=== PATIENT | male | born 1965 | race Caucasian/White ===

== ENCOUNTER 2016-04-03 23:30 | Emergency (ER) | payer SELFPAY ==
[2016-04-03] MEDS ORDERED: Adenosine 6 MG/2 ML VIAL ONE ×2 (23:37→23:40)
[2016-04-03] MEDS ORDERED: Nitroglycerin 2% Ointment 1 INCH/1 GM Packet ONE (23:43)
[2016-04-03] MEDS ORDERED: Ondansetron HCl/PF 4 MG/2 ML Vial ONE (23:49)
[2016-04-04 00:10] LABS: ALT (SGPT) 21 U/L (0-55); AST (SGOT) 32 U/L (5-34); Alkaline Phosphatase 90 U/L (40-150); Anion Gap 18 mmol/L (10-20); BUN (Urea Nitrogen) 13 mg/dL (8.4-25.7); Bilirubin, Total 0.4 mg/dL (0.2-1.2); Calc. Creatinine Clearance 0 mL/min (70-130); Calcium 9.6 mg/dL (7.8-10.44); Carbon Dioxide 19 mmol/L (22-29); Chloride 106 mmol/L (98-107); Estimated GFR-MDRD 84; Globulin 3.5 g/dL (2.4-3.5); Protein, Total 7.8 g/dL (6.0-8.3)
[2016-04-04 00:11] LABS: Troponin I 0.016 ng/mL (< 0.028)
[2016-04-04 00:23] LABS: #Basophils 0.2 thou/uL (0.0-0.2); #Eosinphils 0.3 thou/uL (0.0-0.7); #Lymphocytes 3.7 thou/uL (1.20-3.40); #Monocytes 0.9 thou/uL (0.11-0.59); #Neutrophils 13.1 thou/uL (1.40-6.50); %Basophils 1.3 % (0.0-1.0); %Eosinophils 1.4 % (0.0-10.0); Hematocrit 53.6 % (42.0-52.0); Mean Platelet Volume 7.3 fL (7.4-10.4); White Blood Cell (WBC) Count 18.2 thou/uL (4.8-10.8)
--- NOTE | 2016-04-04 10:02 | RAD ---
PORTABLE CHEST: Date: 04/03/16 No prior films were available for comparison. FINDINGS: An AP portable film at 2351 hours is presented. The heart is normal in size and there is no vascular congestion. There are no pleural effusions. There are some streaky linear infiltrates, particularly in the right lower chest, that could be either atelectasis or a developing pneumonia. The upper lob es are clear. The mediastinum is unremarkable in appearance. IMPRESSION: Some increased density in the lung bases, particularly the right lower lobe. Minimal atelectasis brent heath early infiltrate. POS: HOME
== END 2016-04-04 00:34 | disposition short-term general hospital (02) ==
LOC: BURERS 23:30
DX: I47.1 Supraventricular tachycardia (principal); F17.210 Nicotine dependence, cigarettes, uncomplicated
CPT/HCPCS: 71010; 80053; 82553; 84484; 85025; 85379; 93005; 96361; 96374; 96375; J0153; J2270; J2405

== ENCOUNTER 2016-05-30 11:16 | Emergency (ER) | payer OTHER, SELFPAY ==
[2016-05-30] MEDS ORDERED: Fentanyl 100 MCG/2 ML VIAL ONE (11:39)
[2016-05-30] MEDS ORDERED: Ondansetron HCl/PF 4 MG/2 ML Vial ONE (11:39)
[2016-05-30] MEDS ORDERED: Lisinopril 5 MG TAB ONE (11:57)
[2016-05-30 12:12] LABS: Band 1 % (5-11); Eosinophils 6 % (0-10); Hemoglobin 17.2 g/dL (14.0-18.0); Lymphocytes 30 % (21-51); MDiff Complete? YES; Mean Corpuscular HGB CONC 37.4 g/dL (32.0-36.0); Mean Corpuscular Hemoglobin 37.2 pg (27.0-31.0); Mean Corpuscular Volume 99.5 fl (80.0-94.0); Mean Platelet Volume 8.2 fL (7.4-10.4); Monocytes 7 % (0-10); Neutrophil 56 % (42-75); Platelet Count 145 thou/uL (130-400); RBC Distribution Width 11.7 % (11.5-14.5); Red Blood Cell (RBC) Count 4.63 mill/uL (4.70-6.10); White Blood Cell (WBC) Count 8.8 thou/uL (4.8-10.8)
[2016-05-30] MEDS ORDERED: Prochlorperazine 10 MG/2 ML VIAL ONE (12:39)
[2016-05-30] MEDS ORDERED: diphenhydrAMINE HCl 50 MG/ML 1 ML VIAL ONE (12:39)
[2016-05-30 12:46] LABS: ALT (SGPT) 21 U/L (0-55); AST (SGOT) 24 U/L (5-34); Alkaline Phosphatase 82 U/L (40-150); Anion Gap 13 mmol/L (10-20); BUN (Urea Nitrogen) 11 mg/dL (8.4-25.7); Bilirubin, Total 0.4 mg/dL (0.2-1.2); Calc. Creatinine Clearance 0 mL/min (70-130); Calcium 8.9 mg/dL (7.8-10.44); Carbon Dioxide 22 mmol/L (22-29); Chloride 110 mmol/L (98-107); Estimated GFR-MDRD Greater than 90; Glucose 97 mg/dL (70-105); Potassium 4.2 mmol/L (3.5-5.1); Sodium 141 mmol/L (136-145)
--- NOTE | 2016-05-30 14:59 | CT ---
PRELIMINARY REPORT/[facility]/EMERGENCY AFTER HOURS PROCEDURE: EXAM: CT Head Without Intravenous Contrast CLINICAL HISTORY: The patient is a 51 years male; Pain; Headache; Migraine; With aura; Does not respond to medication; With migrainosus (>72 hrs \T\ severe); Patient HX: Patient reports four weeks ago he underwent a he art ablation, patient reports one week after the surgery he began having a headache to the right hedy e of his head, patient reports he has attempted to treat pain with motrin and tylenol and nothing is relieving his headache, pt reports recently he has been trying nasal wash to relieve headache with no relief noted. TECHNIQUE: Axial computed tomography images of the head/brain without intravenous contrast. COMPARISON: No relevant prior studies available. FINDINGS: Brain: No intracranial hemorrhage. Normal juarez-white differentiation with no evidence of edema, terr itorial infarct, abnormal mass effect or midline shift. No extra-axial fluid collection. Ventricles: Unremarkable. No ventriculomegaly. Bones/joints: Unremarkable. No acute fracture. Soft tissues: Unremarkable. Sinuses: Unremarkable as visualized. No acute sinusitis. Mastoid air cells: Unremarkable as visualized. No mastoid effusion. IMPRESSION: No acute findings. Thank you for allowing us to participate in the care of your patient. Dictated and Authenticated by: Oni Jara MD 05/30/2016 12:27 PM Central Time ([place] \T\ [place]) FINAL REPORT CT OF THE BRAIN WITHOUT CONTRAST 05/30/2016 A non-contrast CT was performed. The ventricles are normal in size with no shift. No intracranial bleeding or extraaxial hematoma was seen. There is no subarachnoid blood evident. No mass, edema, or sign of stroke was found. The calvarium appears normal. The visible paranasal sinuses are clear , as are the mastoid air cells on the right. A few near the mastoid tip on the left were semi-opaqu e. IMPRESSION: No acute intracranial findings. POS: HOME
== END 2016-05-30 13:38 | disposition home or self-care (01) ==
LOC: BURERS 11:16
DX: I10 Essential (primary) hypertension (principal); F17.210 Nicotine dependence, cigarettes, uncomplicated; Z79.82 Long term (current) use of aspirin
CPT/HCPCS: 70450; 80053; 85025; 85652; 94760; 96365; 96375; J0780; J1200; J2405; J3010

== ENCOUNTER 2016-12-29 17:05 | Emergency (ER) | payer SELFPAY ==
[2016-12-29] MEDS ORDERED: Nitroglycerin 2% Ointment 1 INCH/1 GM Packet ONE (17:18)
[2016-12-29 17:23] LABS: #Basophils 0.1 thou/uL (0.0-0.2); #Eosinphils 0.2 thou/uL (0.0-0.7); #Lymphocytes 4.9 thou/uL (1.20-3.40); #Monocytes 0.7 thou/uL (0.11-0.59); #Neutrophils 6.9 thou/uL (1.40-6.50); %Basophils 1.1 % (0.0-1.0); %Eosinophils 1.8 % (0.0-10.0); %Lymphocytes 38.1 % (21.0-51.0); %Monocytes 5.2 % (0.0-10.0); %Neutrophils 53.8 % (42.0-75.0); Hemoglobin 17.2 g/dL (14.0-18.0); MDiff Complete? YES; Macrocytosis SLIGHT = 6-15 cells (100X) (0-5/hpf); Mean Corpuscular HGB CONC 34.6 g/dL (32.0-36.0); Mean Platelet Volume 7.1 fL (7.4-10.4); Platelet Count 188 thou/uL (130-400); RBC Distribution Width 10.8 % (11.5-14.5); Red Blood Cell (RBC) Count 4.92 mill/uL (4.70-6.10); White Blood Cell (WBC) Count 12.9 thou/uL (4.8-10.8)
[2016-12-29 17:40] LABS: ALT (SGPT) 22 U/L (8-55); AST (SGOT) 20 U/L (5-34); Albumin 4.1 g/dL (3.5-5.0); Alkaline Phosphatase 71 U/L (40-150); Anion Gap 15 mmol/L (10-20); BUN (Urea Nitrogen) 14 mg/dL (8.4-25.7); Bilirubin, Total 0.5 mg/dL (0.2-1.2); Calc. Creatinine Clearance 0 mL/min (70-130); Calcium 9.6 mg/dL (7.8-10.44); Carbon Dioxide 23 mmol/L (22-29); Chloride 106 mmol/L (98-107); Estimated GFR-MDRD Greater than 90; Globulin 3.3 g/dL (2.4-3.5); Glucose 85 mg/dL (70-105); Lipase 62 U/L (8-78); Potassium 3.9 mmol/L (3.5-5.1); Protein, Total 7.4 g/dL (6.0-8.3); Sodium 140 mmol/L (136-145)
[2016-12-29 17:41] LABS: CKMB 1.1 ng/mL (0-6.6); Troponin I Less than 0.010 ng/mL (< 0.028)
--- NOTE | 2016-12-29 21:01 | RAD ---
PORTABLE CHEST: 12/29/16 Comparison is made with a 04/03/16 study. The heart is normal in size. There is no vascular congestion or edema. No pleural effusions were seen . Some minor increase in basilar lung markings is no different than before. The mediastinum appears n ormal. Faint calcification is suggested in the aortic arch. IMPRESSION: No acute thoracic finding. POS: HOME
== END 2016-12-29 20:09 | disposition short-term general hospital (02) ==
LOC: BURERS 17:05
DX: R07.2 Precordial pain (principal); I10 Essential (primary) hypertension; I48.92 Unspecified atrial flutter; F41.9 Anxiety disorder, unspecified; F32.9 Major depressive disorder, single episode, unspecified; F17.210 Nicotine dependence, cigarettes, uncomplicated; Z79.82 Long term (current) use of aspirin; Z79.899 Other long term (current) drug therapy
CPT/HCPCS: 71010; 80053; 82553; 83690; 84484; 85025; 93005; 94760

== ENCOUNTER 2017-04-07 08:44 | Emergency (ER) | payer SELFPAY ==
[2017-04-07] MEDS ORDERED: Ondansetron HCl/PF 4 MG/2 ML Vial ONE (09:05)
[2017-04-07] MEDS ORDERED: Morphine 4 MG/ML Carpuject ONE (09:05)
[2017-04-07] MEDS ORDERED: Pantoprazole 40 MG VIAL ONE (09:05)
[2017-04-07 09:17] LABS: ALT (SGPT) 20 U/L (8-55); AST (SGOT) 26 U/L (5-34); Albumin 4.2 g/dL (3.5-5.0); Alkaline Phosphatase 89 U/L (40-150); Anion Gap 13 mmol/L (10-20); BUN (Urea Nitrogen) 13 mg/dL (8.4-25.7); Bilirubin, Total 0.7 mg/dL (0.2-1.2); Calc. Creatinine Clearance 0 mL/min (70-130); Calcium 9.6 mg/dL (7.8-10.44); Carbon Dioxide 24 mmol/L (22-29); Chloride 107 mmol/L (98-107); Estimated GFR-MDRD Greater than 90; Globulin 3.1 g/dL (2.4-3.5); Glucose 94 mg/dL (70-105); Potassium 4.3 mmol/L (3.5-5.1); Protein, Total 7.3 g/dL (6.0-8.3); Sodium 140 mmol/L (136-145)
[2017-04-07 09:19] LABS: #Basophils 0.1 thou/uL (0.0-0.2); #Eosinphils 0.3 thou/uL (0.0-0.7); #Lymphocytes 3.5 thou/uL (1.20-3.40); #Monocytes 0.7 thou/uL (0.11-0.59); #Neutrophils 4.6 thou/uL (1.40-6.50); %Basophils 1.2 % (0.0-1.0); %Eosinophils 3.1 % (0.0-10.0); %Lymphocytes 37.9 % (21.0-51.0); %Monocytes 7.4 % (0.0-10.0); %Neutrophils 50.5 % (42.0-75.0); Hemoglobin 17.4 g/dL (14.0-18.0); Mean Corpuscular Hemoglobin 35.2 pg (27.0-31.0); Mean Corpuscular Volume 97.7 fl (80.0-94.0); Mean Platelet Volume 7.4 fL (7.4-10.4); Platelet Count 166 thou/uL (130-400); RBC Distribution Width 11.2 % (11.5-14.5); Red Blood Cell (RBC) Count 4.95 mill/uL (4.70-6.10); White Blood Cell (WBC) Count 9.1 thou/uL (4.8-10.8)
[2017-04-07 09:21] LABS: CKMB 1.6 ng/mL (0-6.6); Troponin I Less than 0.010 ng/mL (< 0.028)
[2017-04-07 09:27] LABS: PLT Morphology Comment Appears Adequate; RBC Morphology Normal
--- NOTE | 2017-04-07 17:48 | RAD ---
PORTABLE CHEST 04/07/17 An AP portable film at 0850 is compared with an 12/29/16 study. The heart is normal in size and the lungs are clear. No infiltrate or effusion was seen. There is no pulmonary edema or vascular congestion. The mediastinum appears normal. IMPRESSION: No acute thoracic finding. POS: HOME
== END 2017-04-07 11:02 | disposition short-term general hospital (02) ==
LOC: BURERS 08:44
DX: R07.2 Precordial pain (principal); I10 Essential (primary) hypertension; I48.92 Unspecified atrial flutter; F17.210 Nicotine dependence, cigarettes, uncomplicated
CPT/HCPCS: 71045; 80053; 82553; 84484; 85025; 93005; 96374; 96375; C9113; J2270; J2405

== ENCOUNTER 2017-11-01 10:20 | Outpatient (CLI) | payer OTHER, SELFPAY ==
--- NOTE | 2017-11-01 21:36 | RAD ---
LEFT WRIST: 11/01/17 Only AP and oblique views were provided. There is no lateral view given. No fracture, dislocation, or carpal abnormality was seen. The metacarpals appeared intact. IMPRESSION: No acute findings. POS: HOME
== END 2017-11-01 10:21 | disposition home or self-care (01) ==
LOC: BURRAD 10:20
PROVIDERS: ATTEND Family Medicine
DX: M25.532 Pain in left wrist (principal)

== ENCOUNTER 2017-12-19 09:40 | Emergency (ER) | payer SELFPAY ==
[2017-12-19] MEDS ORDERED: predniSONE 20 MG TAB ONE (09:59)
[2017-12-19] MEDS ORDERED: Ketorolac Tromethamine 30 MG/ML VIAL ONE (09:59)
== END 2017-12-19 10:15 | disposition home or self-care (01) ==
LOC: BURERS 09:40
DX: M54.42 Lumbago with sciatica, left side (principal); I10 Essential (primary) hypertension; I49.9 Cardiac arrhythmia, unspecified; I47.1 Supraventricular tachycardia; F17.210 Nicotine dependence, cigarettes, uncomplicated; F41.9 Anxiety disorder, unspecified; F32.9 Major depressive disorder, single episode, unspecified; Z79.82 Long term (current) use of aspirin; Z79.891 Long term (current) use of opiate analgesic; Z79.899 Other long term (current) drug therapy
CPT/HCPCS: 96372; J1885; J7506

== ENCOUNTER 2017-12-23 18:03 | Emergency (ER) | payer SELFPAY | END 2017-12-23 18:26 | disposition home or self-care (01) | LOC: BURERS 18:03 | DX: B02.9 Zoster without complications (principal); I10 Essential (primary) hypertension; I49.9 Cardiac arrhythmia, unspecified; F32.9 Major depressive disorder, single episode, unspecified; F41.9 Anxiety disorder, unspecified; Z87.891 Personal history of nicotine dependence; Z79.82 Long term (current) use of aspirin; Z79.891 Long term (current) use of opiate analgesic; Z79.899 Other long term (current) drug therapy | CPT/HCPCS: 99282 ==

== ENCOUNTER 2018-07-08 22:36 | Emergency (ER) | payer OTHER, SELFPAY ==
[~2018-07-08 22:36] MED LIST: Iopamidol 370 76% 100 ML VIAL ONE
[2018-07-08] MEDS ORDERED: Ketorolac Tromethamine 30 MG/ML VIAL ONE (22:52)
[2018-07-08 23:09] LABS: #Basophils 0.2 thou/uL (0.0-0.2); #Eosinphils 0.2 thou/uL (0.0-0.7); #Lymphocytes 3.6 thou/uL (1.20-3.40); #Monocytes 0.9 thou/uL (0.11-0.59); #Neutrophils 13.6 thou/uL (1.40-6.50); %Eosinophils 1.1 % (0.0-10.0); %Lymphocytes 19.3 % (21.0-51.0); %Monocytes 4.8 % (0.0-10.0); %Neutrophils 73.9 % (42.0-75.0); Mean Corpuscular HGB CONC 34.8 g/dL (32.0-36.0); Mean Corpuscular Hemoglobin 33.7 pg (27.0-31.0); Mean Corpuscular Volume 96.8 fL (78.0-98.0); Mean Platelet Volume 7.3 fL (7.4-10.4); Platelet Count 176 thou/uL (130-400); RBC Distribution Width 11.3 % (11.5-14.5); Red Blood Cell (RBC) Count 5.05 mill/uL (4.70-6.10); White Blood Cell (WBC) Count 18.4 thou/uL (4.8-10.8)
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
[2018-07-08 23:21] LABS: ALT (SGPT) 21 U/L (8-55); AST (SGOT) 34 U/L (5-34); Albumin 4.4 g/dL (3.5-5.0); Alkaline Phosphatase 80 U/L (40-150); Anion Gap 18 mmol/L (10-20); BUN (Urea Nitrogen) 14 mg/dL (8.4-25.7); Bilirubin, Total 0.4 mg/dL (0.2-1.2); Calc. Creatinine Clearance 0 mL/min (70-130); Calcium 9.9 mg/dL (7.8-10.44); Carbon Dioxide 20 mmol/L (22-29); Chloride 105 mmol/L (98-107); Estimated GFR-MDRD 82; Globulin 3.4 g/dL (2.4-3.5); Glucose 109 mg/dL (70-105); Potassium 3.9 mmol/L (3.5-5.1); Protein, Total 7.8 g/dL (6.0-8.3); Sodium 139 mmol/L (136-145)
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
--- NOTE | 2018-07-08 23:27 | CT ---
EXAM: CT of the cervical spine without contrast HISTORY: Neck pain COMPARISON: None TECHNIQUE: Multiple contiguous axial images were obtained in a CT of the cervical spine without contr ast. Sagittal and coronal reformats were performed. FINDINGS: The vertebral bodies demonstrate normal height and alignment without fracture or subluxati on. No prevertebral soft tissue swelling is seen. Moderate degenerative changes are seen in the mid cervical spine with intervertebral disc space narrowing and osteophyte formation. The posterior facets are well aligned. Normal alignment of the skull base with the cervical spine is seen. The lung apices and cervical soft tissues are unremarkable. IMPRESSION: No evidence of acute osseous abnormality of the cervical spine.
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
== END 2018-07-09 00:20 | disposition home or self-care (01) ==
LOC: BURERS 22:36
DX: S00.83XA Contusion of other part of head, initial encounter (principal); S20.212A Contusion of left front wall of thorax, initial encounter; S40.011A Contusion of right shoulder, initial encounter; I47.1 Supraventricular tachycardia; I10 Essential (primary) hypertension; I49.9 Cardiac arrhythmia, unspecified; F41.9 Anxiety disorder, unspecified; F32.9 Major depressive disorder, single episode, unspecified; Z87.891 Personal history of nicotine dependence; Z79.82 Long term (current) use of aspirin; Z79.891 Long term (current) use of opiate analgesic; Z79.899 Other long term (current) drug therapy; V89.2XXA Person injured in unspecified motor-vehicle accident, traffic, initial encounter
CPT/HCPCS: 70450; 70486; 71260; 72125; 74177; 80053; 84484; 85025; 85610; 85730; 93005; 94760; 96374; G0390; J1885; Q9967

== ENCOUNTER 2022-06-01 11:32 | Emergency (ER) | payer SELFPAY ==
[2022-06-01] MEDS ORDERED: Clindamycin 150 MG CAP ONE (11:58)
[2022-06-01] MEDS ORDERED: Ibuprofen 800 MG TAB ONE (11:58)
== END 2022-06-01 12:03 | disposition home or self-care (01) ==
LOC: BURERS 11:32
DX: L73.2 Hidradenitis suppurativa (principal); I10 Essential (primary) hypertension; Z87.891 Personal history of nicotine dependence
CPT/HCPCS: 99283

== ENCOUNTER 2022-06-11 12:04 | Emergency (ER) | payer SELFPAY ==
[2022-06-11] MEDS ORDERED: Ondansetron PF 4 MG/2 ML Vial ONE (12:28)
[2022-06-11] MEDS ORDERED: Ketorolac Tromethamine 30 MG/ML VIAL ONE (12:28)
[2022-06-11 12:34] LABS: #Basophils 0.1 thou/uL (0.0-0.2); #Eosinphils 0.3 thou/uL (0.0-0.7); #Lymphocytes 3.1 thou/uL (1.20-3.40); #Monocytes 0.7 thou/uL (0.11-0.59); #Neutrophils 5.1 thou/uL (1.40-6.50); %Basophils 1.5 % (0.0-1.0); %Eosinophils 3.3 % (0.0-10.0); %Lymphocytes 33.4 % (21.0-51.0); %Monocytes 7.1 % (0.0-10.0); %Neutrophils 54.8 % (42.0-75.0); Hemoglobin 18.2 g/dL (14.0-18.0); Mean Corpuscular HGB CONC 35.5 g/dL (32.0-36.0); Mean Corpuscular Hemoglobin 35.6 pg (27.0-31.0); Platelet Count 178 10x3/uL (130-400); RBC Distribution Width 11.2 % (11.5-14.5); Red Blood Cell (RBC) Count 5.12 mill/uL (4.70-6.10); White Blood Cell (WBC) Count 9.4 10x3/uL (4.8-10.8)
[2022-06-11 12:36] LABS: MDiff Complete? YES
[2022-06-11 12:54] LABS: ALT (SGPT) 17 U/L (8-55); AST (SGOT) 22 U/L (5-34); Albumin 4.2 g/dL (3.5-5.0); Alcohol Less than 10 mg/dL (Less than 10); Alkaline Phosphatase 70 U/L (40-110); Anion Gap 12 mmol/L (10-20); BUN (Urea Nitrogen) 11 mg/dL (8.4-25.7); Bilirubin, Total 0.5 mg/dL (0.2-1.2); Calc. Creatinine Clearance 0 mL/min (70-130); Calcium 9.1 mg/dL (7.8-10.44); Carbon Dioxide 21 mmol/L (22-29); Chloride 109 mmol/L (98-107); Estimated GFR 98; Globulin 3.2 g/dL (2.4-3.5); Glucose 99 mg/dL (70-105); Lipase 199 U/L (8-78); Magnesium 1.8 mg/dL (1.6-2.6); Potassium 4.1 mmol/L (3.5-5.1); Protein, Total 7.4 g/dL (6.0-8.3); Sodium 138 mmol/L (136-145)
[2022-06-11 12:59] LABS: Bilirubin Small (Negative); Blood, Urine Negative (Negative); Clarity Clear (Clear); Glucose, Urine (Dipstick) Negative (Negative); Ketone, Urine Negative (Negative); Leukocyte Negative (Negative); Nitrite Negative (Negative); Protein, Urine (Dipstick) Negative (Neg-Trace); Urobilinogen 0.2 mg/dL (Less than 2); pH, Urine 5.5 (5.0-9.0)
[2022-06-11 13:01] LABS: Specific Gravity, Urine 1.024 (1.002-1.036)
[2022-06-11 13:19] LABS: Amphetamine Not Detected (NotDetected); Barbiturates Screen Not Detected (NotDetected); Benzodiazepine Screen Not Detected (NotDetected); Cocaine Metabolite Screen Not Detected (NotDetected); Methadone Not Detected (NotDetected); Methamphetamine Detected (NotDetected); Opiate Screen Not Detected (NotDetected); Oxycodone Screen Not Detected (NotDetected); Phencyclidine (PCP) Not Detected (NotDetected); THC/Cannabinoid Screen Detected (NotDetected); Tricyclic Screen Not Detected (NotDetected)
== END 2022-06-11 14:18 | disposition home or self-care (01) ==
LOC: BURERS 12:04
DX: F15.20 Other stimulant dependence, uncomplicated (principal); E86.0 Dehydration; Z87.891 Personal history of nicotine dependence
CPT/HCPCS: 74177; 80053; 80306; 80307; 81003; 83690; 83735; 85025; 96361; 96374; 96375; J1885; J2405; Q9967